=== PATIENT | male | born 1945 ===

== ENCOUNTER 2018-01-03 04:13 | Emergency (ER) | payer SELFPAY ==
[~2018-01-03] VITALS: Ht 177.8 cm; Wt 91.0 kg
[2018-01-03 04:21] VITALS: BP 163/82
[2018-01-03] MEDS ORDERED: [UNRECOGNIZED DRUG - OTHER] (04:28)
== END 2018-01-03 06:07 | disposition home or self-care (01) ==
LOC: ED 06:00
DX: T69.9XXA Effect of reduced temperature, unspecified, initial encounter (principal); I10 Essential (primary) hypertension; Z72.89 Other problems related to lifestyle; Z59.0 Homelessness; Z87.891 Personal history of nicotine dependence; X31.XXXA Exposure to excessive natural cold, initial encounter; Y93.89 Activity, other specified; Y92.89 Other specified places as the place of occurrence of the external cause; Y99.8 Other external cause status
CPT/HCPCS: 99283

== ENCOUNTER 2018-03-05 03:33 | Emergency (ER) | payer SELFPAY ==
[~2018-03-05] VITALS: Ht 177.8 cm; Wt 95.5 kg
[~2018-03-05 03:33] MED LIST: [UNRECOGNIZED DRUG - OTHER]
[2018-03-05] MEDS ORDERED: OXYcodone/APAP 5/325MG TABLET ONE (03:50)
[2018-03-05] MEDS ORDERED: OXYcodone/APAP 5/325MG TABLET PO ONE (04:00)
[2018-03-05 05:16] VITALS: BP 147/79
== END 2018-03-05 05:18 | disposition home or self-care (01) ==
LOC: ED 04:25
DX: S83.512A Sprain of anterior cruciate ligament of left knee, initial encounter (principal); M25.462 Effusion, left knee; I10 Essential (primary) hypertension; W01.0XXA Fall on same level from slipping, tripping and stumbling without subsequent striking against object, initial encounter; Y93.01 Activity, walking, marching and hiking; Y92.009 Unspecified place in unspecified non-institutional (private) residence as the place of occurrence of the external cause; Y99.8 Other external cause status
CPT/HCPCS: 29505; 99284